=== PATIENT | female | born 1955 | race Caucasian/White ===

== ENCOUNTER 2017-07-28 13:38 | Emergency (ER) | payer OTHER, BC ==
[~2017-07-28] VITALS: Ht 152.4 cm; Wt 122.6 kg
[~2017-07-28 13:38] MED LIST: ACTOPLUS MET1 TABLET PO; ALLEGRA30 MG PO; AMBIEN10 MG PO; AMRIX15 MG PO; ASCORBIC ACID500 M3 PO; AVALIDE 300/1 TABLET PO; CLONIDINE HCL0.2 MG PO; COMBIVENT200 INHALA IH; Coumadin dosing per PO; DOXYCYCLINE150 MG PO; DURAGESIC12 MCG TD; EFFEXOR25 MG PO; FEXOFENADINE H180 M1 PO; FLEXERIL5 M1 PO; FOLIC ACID1 MG PO; HYZAAR 100-11 TABLET PO; KLOR-CON M1010 MEQ PO; LEVEMIR FL100 UNITS/ SC; LYRICA100 MG PO; LYRICA25 MG PO; Lotrisone TP; MITRAZOL POWDER30 GM TP; NOVOLOG100 UNIT/2 SQ; OMEPRAZOLE40 M1 PO; OXYCONTIN10 MG PO; PRILOSEC2.5 MG PO; SPIRIVA1 INHALATI IH; SYMBICORT60 INHALAT IH; VENLAFAXINE HCL75 M2 PO; ZOLPIDEM TARTRA10 MG PO
[2017-07-28 14:16] LABS: HEMATOCRIT 34.6 % (36.0-46.0); MCH 25.6 PG (29.0-34.0); MCHC 31.2 G/DL (30.0-36.0); MEAN PLAT.VOLUME 9.7 uM^3 (9.5-12.4); PLATELET COUNT 269 K/uL (156-360); RBC DIS.WIDTH-CV 16.5 % (11.8-14.6); RBC DIS.WIDTH-SD 48.6 % (39-53); RED BLOOD COUNT 4.22 M/uL (3.80-5.20); WHITE BLOOD COUNT 13.5 K/uL (4.1-10.2)
[2017-07-28 14:24] LABS: CHLORIDE 107 mEq/L (99-109); POTASSIUM 3.9 mEq/L (3.7-5.4); SODIUM 139 mEq/L (136-147)
[2017-07-28 14:25] LABS: GLUCOSE 181 mg/dL (70-99)
[2017-07-28 14:27] LABS: ANION GAP 7 MEQ/L (2-14)
[2017-07-28 14:29] LABS: GFR ESTIMATE (CALCULATED) > 59 mL/min/
[2017-07-28 14:30] LABS: UREA NITROGEN (BUN) 21 mg/dL (9-23)
[2017-07-28 14:36] LABS: TROP-I INTERPRETATION NEGATIVE; TROPONIN-I < 0.01 ng/mL (0.0-0.30)
[2017-07-28 14:41] LABS: POINT-OF-CARE METER ID UU13113747
[2017-07-28 15:48] LABS: ADD MIUA? YES; BILIRUBIN NEGATIVE; BLOOD NEGATIVE; COLOR YELLOW ((YELLOW)); GLUCOSE (STRIP) 50; KETONES NEGATIVE; LEUKOCYTES MODERATE; NITRITE NEGATIVE; PROTEIN (STRIP) NEGATIVE; SPECIFIC GRAVITY 1.015 (1.000-1.030); UROBILINOGEN 0.2 MG/DL (0.2-1.0)
[2017-07-28 15:48] LABS: POINT-OF-CARE METER ID UU13113747
[2017-07-28 16:02] LABS: BACTERIA RARE /HPF; EPITHELIAL CELLS 2+ /HPF; HYALINE CASTS 0-5 /LPF; MUCUS NONE SEEN /LPF; RED BLOOD CELLS 0-5 /HPF (0-5); UCUL ADDED? YES
[2017-07-28] MEDS ORDERED: KEFLEX500 MG PO (16:22)
[2017-07-28 17:05] VITALS: BP 149/65
[2017-07-29 22:07] LABS: POINT-OF-CARE METER ID UU13113747
== END 2017-07-28 17:19 | disposition home or self-care (01) ==
LOC: EME → EDBD 13:38 → EME 17:19
PROVIDERS: Emergency Medicine
DX: E11.649 Type 2 diabetes mellitus with hypoglycemia without coma (principal); T38.3X5A Adverse effect of insulin and oral hypoglycemic [antidiabetic] drugs, initial encounter; Z79.4 Long term (current) use of insulin; N39.0 Urinary tract infection, site not specified; I10 Essential (primary) hypertension; Z86.711 Personal history of pulmonary embolism; Z79.01 Long term (current) use of anticoagulants; Z98.84 Bariatric surgery status; Z87.891 Personal history of nicotine dependence
CPT/HCPCS: 71010; 80048; 81003; 82948; 84484; 85027; 87077; 87086 GA; 87186; 93005; 99281; 99285; J7030

== ENCOUNTER 2017-11-19 19:52 | Emergency (ER) | payer OTHER, BC ==
[~2017-11-19] VITALS: Ht 162.6 cm; Wt 122.7 kg
[~2017-11-19 19:52] MED LIST changes: +KEFLEX500 MG PO
[2017-11-19 19:55] VITALS: BP 184/114
== END 2017-11-19 22:30 | disposition left against medical advice (07) ==
LOC: EME 19:52
DX: R11.2 Nausea with vomiting, unspecified (principal); R19.7 Diarrhea, unspecified; Z53.21 Procedure and treatment not carried out due to patient leaving prior to being seen by health care provider
CPT/HCPCS: 82948